=== PATIENT | female | born 1950 | race Caucasian/White ===

== ENCOUNTER 2016-07-08 06:46 | Emergency (ER) | payer OTHER ==
[~2016-07-08] VITALS: Ht 165.1 cm; Wt 54.0 kg
[~2016-07-08 06:46] MED LIST: CIPR500T4 PO; FLAG500T PO; PERC5TAB12 PO
[2016-07-08 06:51] VITALS: BP 139/91; PULSE 106; RESP 18; TEMP 97.1; O2SAT 96
[2016-07-08 07:11] LABS: BLOOD, URINE NEG (NEG); GLUCOSE,URINE NEG (NEG); KETONE, URINE NEG (NEG); NITRITE,URINE NEG (NEG)
[2016-07-08] MEDS ORDERED: PHEN100C PO (07:14)
[2016-07-08] MEDS ORDERED: ALPR0.25 PO (07:14)
[2016-07-08] MEDS ORDERED: ATOR20TA15 PO (07:14)
[2016-07-08] MEDS ORDERED: TRAZ100T4 PO (07:14)
--- NOTE | 2016-07-08 07:16 | PD ---
HPI Chief Complaint: Complaint Time Seen by Provider: 07:11 Travel History International Travel<30 days: No Contact w/Intl Traveler<30days: No Traveled to known affect area: No History of Present Illness HPI This patient complains of dysuria and urinary frequency. Duration 2 days. Severity is moderate. No alleviating factors PFSH Past Medical History Anxiety: Yes Depression: Yes Cancer: No Cardiovascular Problems: No High Cholesterol: Yes Diabetes: No Diminished Hearing: No Endocrine: No Gastrointestinal Disorders: No Genitourinary: No Hepatitis: No Hiatal Hernia: No Hypertension: Yes (WHEN NERVOUS) Immune Disorder: No Implanted Vascular Access Dvce: No Insomnia: Yes Musculoskeletal: Yes (SOME BACK PROBLEMS) Neurologic: Yes (SEIZURES 2 YEARS AGO FOLLOWING TEMPERATURE SPIKE) Psychiatric: Yes (ANXIETY) Reproductive: No Respiratory: Yes (SMOKES 1/2 PPD) Seizures: Yes (DIAGNOSED IN 2011, ON DILANTIN) Thyroid Disease: No Influenza Vaccination: No ?: Not Menopausal: Yes Past Surgical History AICD: No Section: Yes (X1) Gynecologic Surgery: Yes () Joint Replacement: No Pacemaker: No Other Surgery: Yes Social History Alcohol Use: Yes (1-2 GLASSES OF WINE OCCAS.) Tobacco Use: Yes (ONE PPD) Substance Use: No Allergies-Medications (Allergen,Severity, Reaction): Coded Allergies: Erythromycin (Verified Adverse Reaction, Unknown, gi upset, 12/29/15) Reported Meds & Prescriptions Reported Meds & Active Scripts Active Reported Phenytoin Extended 100 Mg Cap 200 Mg PO DAILY Trazodone (Trazodone HCl) 100 Mg Tab 100 Mg PO HS Atorvastatin (Atorvastatin Calcium) 20 Mg Tab 20 Mg PO HS Alprazolam 0.25 Mg Tab 0.25 Mg PO Q4H PRN Review of Systems General / Constitutional: No: Fever HENT: No: Headaches Cardiovascular: No: Chest Pain or Discomfort Respiratory: No: Cough Physical Exam Narrative GASTROINTESTINAL: Abdomen soft, non-tender, nondistended. Positive bowel sounds. No hepato-splenomegaly, or palpable masses. No guarding. SKIN: Focused skin assessment reveals no rash or ulcers. Skin is warm and dry. Palpation shows no induration or nodules. Psych: Normal mood and affect. Normal insight and judgment. Data Data Last Documented VS Vital Signs Date Time Temp Pulse Resp B/P Pulse Ox O2 Delivery O2 Flow Rate FiO2 07/08/16 06:51 97.1 106 18 139/91 96 Orders Urinalysis - C+S If Indicated (07/08/16 07:03) MDM Medical Decision Making Medical Screen Exam Complete: Yes Emergency Medical Condition: Yes Medical Record Reviewed: Yes Differential Diagnosis Cystitis, pyelonephritis, UTI Narrative Course I have reviewed the patient's electronic medical record. Patient was here December 2015 for diverticulitis Urinalysis Navid Velasco MD Jul 08, 2016 07:16
[2016-07-08 07:17] LABS: BACTERIA, URINE MANY /hpf; CULTURE IF INDICATED CULTURE INDICATED; METHOD OF COLLECTION CLEAN CATCH; RBC, URINE 0-3 /hpf (0-3); URINE COLOR STRAW (YELLW/STRAW)
[2016-07-08 07:18] LABS: COMMENT (UR) CULTURE INDICATED; SQUAMOUS EPITHELIAL CELL URINE 0-5 /hpf (0-5); TRANSITIONAL EPI CELLS, URINE 0-5 /hpf
[2016-07-08] MEDS ORDERED: BACT800T5 PO (07:23)
[2016-08-01] MEDS ORDERED: DILA100C PO (10:50)
[2016-08-01] MEDS ORDERED: PHEN100C PO (10:50)
[2016-08-01] MEDS ORDERED: ESTR42.5V VAGINAL (11:13)
== END 2016-07-08 07:41 | disposition home or self-care (01) ==
LOC: PHED 06:46
DX: N39.0 Urinary tract infection, site not specified (principal); F41.9 Anxiety disorder, unspecified; F32.9 Major depressive disorder, single episode, unspecified; E78.00 Pure hypercholesterolemia, unspecified; I10 Essential (primary) hypertension; F17.200 Nicotine dependence, unspecified, uncomplicated
CPT/HCPCS: 81001; 87077; 87086; 87186; 99283

== ENCOUNTER 2016-07-16 07:12 | Emergency (ER) | payer OTHER ==
[~2016-07-16] VITALS: Ht 165.1 cm; Wt 52.2 kg
[~2016-07-16 07:12] MED LIST changes: +ALPR0.25 PO; +ATOR20TA15 PO; +BACT800T5 PO; -CIPR500T4 PO; -FLAG500T PO; -PERC5TAB12 PO; +PHEN100C PO; +TRAZ100T4 PO
[2016-07-16 07:30] VITALS: BP 170/99; PULSE 90; RESP 16; TEMP 97.9; O2SAT 96
[2016-07-16 07:50] LABS: BLOOD, URINE NEG (NEG); GLUCOSE,URINE NEG (NEG); KETONE, URINE TRACE mg/dL (NEG); NITRITE,URINE NEG (NEG); PH, URINE 5.5 (5.0-8.5)
[2016-07-16 07:57] LABS: METHOD OF COLLECTION CLEAN CATCH; URINE COLOR YELLOW (YELLW/STRAW)
[2016-07-16 07:58] LABS: BACTERIA, URINE FEW /hpf; COMMENT (UR) CULT NOT INDICATED; CULTURE IF INDICATED CULT NOT INDICATED; RBC, URINE 0-3 /hpf (0-3)
[2016-07-16] MEDS ORDERED: PYRI200T4 PO (08:17)
--- NOTE | 2016-07-16 08:17 | PD ---
HPI Chief Complaint: Complaint Time Seen by Provider: 08:02 Travel History International Travel<30 days: No Contact w/Intl Traveler<30days: No Traveled to known affect area: No History of Present Illness HPI The patient is a 65-year-old female who presents emergency department for dysuria and suprapubic pressure. The patient was diagnosed with urinary tract infection approximately one week ago. The patient was placed on Bactrim twice a day for 5 days and her symptoms resolved. However, the patient developed frequency and urgency last night without any actual dysuria or hematuria. The patient does complain of suprapubic discomfort, but denies any flank pain, back pain, nausea, vomiting, or history of chronic urinary tract infections. Patient denies any history of bladder prolapse. The patient denies any associated fever, chills, or sweats. Symptoms are moderate, possibly exacerbated by recent urinary tract infection, and there are no current alleviating factors. PFSH Past Medical History Anxiety: Yes Depression: Yes Cancer: No Cardiovascular Problems: No High Cholesterol: Yes Diabetes: No Diminished Hearing: No Endocrine: No Gastrointestinal Disorders: No Genitourinary: No Hepatitis: No Hiatal Hernia: No Hypertension: Yes (WHEN NERVOUS) Immune Disorder: No Implanted Vascular Access Dvce: No Insomnia: Yes Medical other: No Musculoskeletal: Yes (SOME BACK PROBLEMS) Neurologic: Yes (SEIZURES 2 YEARS AGO FOLLOWING TEMPERATURE SPIKE) Psychiatric: Yes (ANXIETY) Reproductive: No Respiratory: Yes (SMOKES 1/2 PPD) Seizures: Yes (DIAGNOSED IN 2011, ON DILANTIN) Thyroid Disease: No ?: Not Menopausal: Yes Past Surgical History AICD: No Section: Yes (X1) Gynecologic Surgery: Yes () Joint Replacement: No Pacemaker: No Other Surgery: Yes Social History Alcohol Use: Yes (1-2 GLASSES OF WINE OCCAS.) Tobacco Use: Yes (ONE PPD) Substance Use: No Allergies-Medications (Allergen,Severity, Reaction): Coded Allergies: Erythromycin (Verified Adverse Reaction, Unknown, gi upset, 07/16/16) Reported Meds & Prescriptions Reported Meds & Active Scripts Active Reported Phenytoin Extended 100 Mg Cap 200 Mg PO DAILY Trazodone (Trazodone HCl) 100 Mg Tab 100 Mg PO HS Atorvastatin (Atorvastatin Calcium) 20 Mg Tab 20 Mg PO HS Alprazolam 0.25 Mg Tab 0.25 Mg PO Q4H PRN Review of Systems General / Constitutional: No: Fever Gastrointestinal: No: Nausea, Vomiting, Abdominal Pain Genitourinary: Positive: Urgency, Frequency, Pelvic Pain (suprapubic discomfort ), No: Dysuria, Hematuria, Decreased Urinary Output, Discharge Skin: No Rash Physical Exam Narrative GENERAL: Awake, alert, pleasant 65-year-old female who appears her stated age and is in no acute respiratory distress. SKIN: Focused skin assessment warm/dry. HEAD: Atraumatic. Normocephalic. EYES: No injection or drainage.. ENT: No nasal bleeding or discharge. Breath smells of cigarettes. NECK: Trachea midline. No JVD. GASTROINTESTINAL: Abdomen soft, mild suprapubic tenderness. Back: No CVA tenderness. MUSCULOSKELETAL: No obvious deformities. No clubbing. No cyanosis. No edema. NEUROLOGICAL: Awake and alert. No obvious cranial nerve deficits. Motor grossly within normal limits. Normal speech. PSYCHIATRIC: Appropriate mood and affect; insight and judgment normal. Data Data Last Documented VS Vital Signs Date Time Temp Pulse Resp B/P Pulse Ox O2 Delivery O2 Flow Rate FiO2 07/16/16 07:30 97.9 90 16 170/99 96 Orders Urinalysis - C+S If Indicated (07/16/16 07:32) Labs Laboratory Tests Test 07/16/16 07:35 Urine Collection Type CLEAN CATCH Urine Color YELLOW Urine Turbidity CLEAR Urine pH 5.5 Urine Specific [place] 1.015 Urine Protein NEG mg/dL Urine Glucose (UA) NEG mg/dL Urine Ketones TRACE mg/dL Urine Occult Blood NEG Urine Nitrite NEG Urine Bilirubin NEG Urine Leukocyte Esterase TRACE Urine RBC 0-3 /hpf Urine WBC 3-5 /hpf Urine Squamous Epithelial 6-8 /hpf Cells Urine Bacteria FEW /hpf Microscopic Urinalysis Comment CULT NOT INDICATED Urine Collection Time 07:35 [facility] Medical Decision Making Medical Screen Exam Complete: Yes Emergency Medical Condition: Yes Medical Record Reviewed: Yes Interpretation(s) Laboratory Tests Test 07/16/16 07:35 Urine Collection Type CLEAN CATCH Urine Color YELLOW Urine Turbidity CLEAR Urine pH 5.5 Urine Specific [place] 1.015 Urine Protein NEG mg/dL Urine Glucose (UA) NEG mg/dL Urine Ketones TRACE mg/dL Urine Occult Blood NEG Urine Nitrite NEG Urine Bilirubin NEG Urine Leukocyte Esterase TRACE Urine RBC 0-3 /hpf Urine WBC 3-5 /hpf Urine Squamous Epithelial 6-8 /hpf Cells Urine Bacteria FEW /hpf Microscopic Urinalysis Comment CULT NOT INDICATED Urine Collection Time 07:35 Differential Diagnosis Differential diagnosis includes cystitis, UTI, bladder prolapse, vaginitis, STI , nephrolithiasis. Narrative Course The patient has urgency, frequency, and suprapubic discomfort consistent with cystitis. UA reveals no wbc's. I reviewed the EMR, the patient's UA from her previous visit grew Klebsiella which was sensitive to Bactrim. The patient may have continuing cystitis without any overt infection. The patient will be placed on pyridium for 2 days. The patient is advised to follow-up with her primary physician, Dr. Sanchez. Diagnosis Primary Impression: Cystitis Patient Instructions: General Instructions Additional Instructions: Pyridium as directed. Follow-up with your primary physician. Return for fever or progressing symptoms. Med/Other Pt SpecificInfo: Prescription(s) given Scripts Phenazopyridine (Pyridium)200 Mg [id number] Mg PO Q8H PRN (DYSURIA) 2 Days Ref 0 Prov:Kenneth Adler MD 07/16/16 Disposition: 01 DISCHARGE HOME Condition: Stable Kenneth Adler MD Jul 16, 2016 08:17
[2016-08-01] MEDS ORDERED: PHEN100C PO (10:50)
[2016-08-01] MEDS ORDERED: DILA100C PO (10:50)
[2016-08-01] MEDS ORDERED: ESTR42.5V VAGINAL (11:13)
== END 2016-07-16 08:25 | disposition home or self-care (01) ==
LOC: PHEFT 07:12
DX: N30.90 Cystitis, unspecified without hematuria (principal); E78.00 Pure hypercholesterolemia, unspecified; F17.210 Nicotine dependence, cigarettes, uncomplicated; R56.9 Unspecified convulsions
CPT/HCPCS: 81001; 99283

== ENCOUNTER 2016-11-13 05:35 | Emergency (ER) | payer OTHER ==
[~2016-11-13] VITALS: Ht 165.1 cm; Wt 53.0 kg
[~2016-11-13 05:35] MED LIST changes: -BACT800T5 PO; +DILA100C PO; +ESTR42.5V VAGINAL; +PYRI200T4 PO
[2016-11-13 05:43] VITALS: BP 162/83; PULSE 76; RESP 16; TEMP 98.3; O2SAT 94
[2016-11-13 06:11] VITALS: BP 162/83; PULSE 76; RESP 16; TEMP 98.3; O2SAT 94
--- NOTE | 2016-11-13 06:43 | PD ---
HPI Chief Complaint: Complaint Time Seen by Provider: 06:34 Travel History International Travel<30 days: No Contact w/Intl Traveler<30days: No Traveled to known affect area: No History of Present Illness HPI The patient is a 65-year-old female with a history of frequent urinary tract infections that complains of dysuria, frequency and urgency for 1 day. She denies any fever, nausea, vomiting, flank pain. PFSH Past Medical History Anxiety: Yes Depression: Yes Cancer: No Cardiovascular Problems: No High Cholesterol: Yes Diabetes: No Diminished Hearing: No Endocrine: No Gastrointestinal Disorders: No Genitourinary: No Hepatitis: No Hiatal Hernia: No Hypertension: Yes (WHEN NERVOUS) Immune Disorder: No Implanted Vascular Access Dvce: No Insomnia: Yes Musculoskeletal: Yes (SOME BACK PROBLEMS) Neurologic: Yes (SEIZURES 2 YEARS AGO FOLLOWING TEMPERATURE SPIKE) Psychiatric: Yes (ANXIETY) Reproductive: No Respiratory: Yes (SMOKES 1/2 PPD) Seizures: Yes (DIAGNOSED IN 2011, ON DILANTIN) Thyroid Disease: No ?: Not Menopausal: Yes Past Surgical History AICD: No Section: Yes (X1) Gynecologic Surgery: Yes () Joint Replacement: No Pacemaker: No Other Surgery: Yes Social History Alcohol Use: Yes (1-2 GLASSES OF WINE OCCAS.) Tobacco Use: Yes (ONE PPD) Substance Use: No Allergies-Medications (Allergen,Severity, Reaction): Coded Allergies: Erythromycin (Verified Adverse Reaction, Unknown, gi upset, 11/13/16) Reported Meds & Prescriptions Reported Meds & Active Scripts Active Estrace Vaginal (Estradiol) 0.01% Cream 1 Gm VAGINAL HS Pyridium (Phenazopyridine HCl) 200 Mg Tab 200 Mg PO Q8H PRN 2 Days Reported Dilantin (Phenytoin Extended) 100 Mg Cap 100 Mg PO ONCE Phenytoin Extended 100 Mg Cap 100 Mg PO TID Phenytoin Extended 100 Mg Cap 200 Mg PO DAILY Trazodone (Trazodone HCl) 100 Mg Tab 100 Mg PO HS Atorvastatin (Atorvastatin Calcium) 20 Mg Tab 20 Mg PO HS Alprazolam 0.25 Mg Tab 0.25 Mg PO Q4H PRN Review of Systems Except as stated in HPI: all other systems reviewed are Neg Physical Exam Narrative GENERAL: Well-nourished, well-developed patient in slight apparent distress with her suprapubic discomfort. Her vital signs show blood pressure 162/83 with oximetry 94% but otherwise normal. SKIN: Focused skin assessment warm/dry. HEAD: Normocephalic. EYES: No scleral icterus. No injection or drainage. NECK: Supple, trachea midline. No JVD or lymphadenopathy. CARDIOVASCULAR: Regular rate and rhythm without murmurs, gallops, or rubs. RESPIRATORY: Breath sounds equal bilaterally. No accessory muscle use. GASTROINTESTINAL: Abdomen soft, with slight discomfort to direct palpation over the midline suprapubic area, the abdomen is nondistended. MUSCULOSKELETAL: No cyanosis, or edema. BACK: Nontender without obvious deformity. No CVA tenderness. Data Data Last Documented VS Vital Signs Date Time Temp Pulse Resp B/P Pulse Ox O2 Delivery O2 Flow Rate FiO2 11/13/16 06:16 16 11/13/16 06:11 98.3 76 162/83 94 Orders Urinalysis - C+S If Indicated (11/13/16 05:51) MDM Medical Decision Making Medical Screen Exam Complete: Yes Emergency Medical Condition: Yes Medical Record Reviewed: Yes Differential Diagnosis Cystitis, pyelonephritis, urethritis, interstitial cystitis. Narrative Course It is now 0650 and the patient is transferred to Dr. Jono Coles. Remberto Lake MD Nov 13, 2016 06:43
[2016-11-13] MEDS ORDERED: ALPR0.5T3 PO (06:51)
[2016-11-13] MEDS ORDERED: TRAZ100T6 PO (06:51)
[2016-11-13] MEDS ORDERED: BISO5TAB2 PO (06:51)
[2016-11-13 06:58] LABS: BLOOD, URINE NEG (NEG); GLUCOSE,URINE NEG (NEG); KETONE, URINE NEG (NEG); NITRITE,URINE NEG (NEG); PH, URINE 6.5 (5.0-8.5)
[2016-11-13 07:01] LABS: METHOD OF COLLECTION CLEAN CATCH; URINE COLOR YELLOW (YELLW/STRAW)
--- NOTE | 2016-11-13 07:01 | PD ---
Physical Exam Date Seen by Provider: Nov 13, 2016 Time Seen by Provider: 07:00 Narrative The patient was signed out to me by Dr. Remberto Lake at change of shift. The patient presented complaining of suprapubic fullness and difficulty urinating. Patient has a history of multiple UTIs. The urinalysis was pending at time of sign out. Data Data Last Documented VS Vital Signs Date Time Temp Pulse Resp B/P Pulse Ox O2 Delivery O2 Flow Rate FiO2 11/13/16 06:16 16 11/13/16 06:11 98.3 76 162/83 94 Orders Urinalysis - C+S If Indicated (11/13/16 05:51) Labs Laboratory Tests Test 11/13/16 06:50 Urine Collection Type CLEAN CATCH Urine Color YELLOW Urine Turbidity CLEAR Urine pH 6.5 Urine Specific [place] 1.006 Urine Protein NEG mg/dL Urine Glucose (UA) NEG mg/dL Urine Ketones NEG mg/dL Urine Occult Blood NEG Urine Nitrite NEG Urine Bilirubin NEG Urine Leukocyte Esterase MOD Urine RBC 0-3 /hpf Urine WBC 3-5 /hpf Microscopic Urinalysis Comment CULT NOT INDICATED MDM Medical Record Reviewed: Yes Supervised Visit with JOEL: Yes Narrative Course 65-year-old female presents today with complaints of pressure in her bladder and difficulty urinating. Patient has history of multiple UTIs. Urinalysis shows leukocyte esterase however no bacteria. Given patient's history and symptoms, we will treat her with Macrobid 100 mg twice a day 7 days she will also be given Pyridium for bladder spasms. Diagnosis Primary Impression: Cystitis Additional Instruction: Drink plenty of water. Follow up with her primary care physician. Med/Other Pt SpecificInfo: Prescription(s) given Scripts Phenazopyridine (Pyridium)100 Mg [id number] Mg PO Q8HR #6 TAB Ref 0 Prov:Jono Coles MD 11/13/16 Nitrofurantoin Monohydrate Macrocrystals (Macrobid)100 Mg [id number] Mg PO BID #14 CAP Ref 0 Prov:Jono Coles MD 11/13/16 Disposition: 01 DISCHARGE HOME Condition: Stable Jono Coles MD Nov 13, 2016 07:01
[2016-11-13 07:02] LABS: COMMENT (UR) CULT NOT INDICATED; CULTURE IF INDICATED CULT NOT INDICATED; RBC, URINE 0-3 /hpf (0-3)
[2016-11-13] MEDS ORDERED: PHEN0.4T PO (07:08)
[2016-11-13] MEDS ORDERED: MACR100C2 PO (07:08)
[2016-11-13 07:31] VITALS: BP 132/78
== END 2016-11-13 07:33 | disposition home or self-care (01) ==
LOC: PHED 05:35
DX: N30.90 Cystitis, unspecified without hematuria (principal)
CPT/HCPCS: 81001; 99284

== ENCOUNTER 2017-01-21 08:58 | Emergency (ER) | payer OTHER ==
[~2017-01-21] VITALS: Ht 165.1 cm; Wt 52.0 kg
[~2017-01-21 08:58] MED LIST changes: -ALPR0.25 PO; +ALPR0.5T3 PO; +BISO5TAB2 PO; +MACR100C2 PO; +PHEN0.4T PO; -PHEN100C PO; -PYRI200T4 PO; -TRAZ100T4 PO; +TRAZ100T6 PO
[2017-01-21 09:03] VITALS: BP 127/81; PULSE 80; RESP 18; TEMP 97.9; O2SAT 97
--- NOTE | 2017-01-21 09:27 | PD ---
HPI Chief Complaint: Abdominal Pain Time Seen by Provider: 09:23 Travel History International Travel<30 days: No Contact w/Intl Traveler<30days: No Traveled to known affect area: No History of Present Illness HPI Patient presents with complaints of abdominal discomfort and mild nausea since yesterday morning. Reports normal stools. Admits to increased urinary frequency. Denies any vomiting diarrhea or fever. History of no no other abdominal surgeries. Taking fluids well. PFSH Past Medical History Anxiety: Yes Depression: Yes Cancer: No Cardiovascular Problems: No High Cholesterol: Yes Diabetes: No Diminished Hearing: No Endocrine: No Gastrointestinal Disorders: No Genitourinary: No Hepatitis: No Hiatal Hernia: No Hypertension: Yes (WHEN NERVOUS) Immune Disorder: No Implanted Vascular Access Dvce: No Insomnia: Yes Musculoskeletal: Yes (SOME BACK PROBLEMS) Neurologic: Yes (SEIZURES 2 YEARS AGO FOLLOWING TEMPERATURE SPIKE) Psychiatric: Yes (ANXIETY) Reproductive: No Respiratory: Yes (SMOKES 1/2 PPD) Seizures: Yes (DIAGNOSED IN 2011, ON DILANTIN) Thyroid Disease: No Influenza Vaccination: No ?: Not Menopausal: Yes Past Surgical History AICD: No Section: Yes (X1) Gynecologic Surgery: Yes () Joint Replacement: No Pacemaker: No Other Surgery: Yes Social History Alcohol Use: Yes (1-2 GLASSES OF WINE OCCAS.) Tobacco Use: Yes (<one ppd) Substance Use: No Allergies-Medications (Allergen,Severity, Reaction): Coded Allergies: erythromycin base (Unverified Adverse Reaction, Unknown, gi upset, ) Reported Meds & Prescriptions Reported Meds & Active Scripts Active Reported Trazodone (Trazodone HCl) 100 Mg Tablet 100 Mg PO HS Bisoprolol-Hydrochlorothiazide 5-6.25 Mg Tab 1 Tab PO DAILY Alprazolam 0.5 Mg Tab 0.5 Mg PO Q8H PRN Dilantin (Phenytoin Extended) 100 Mg Cap 100 Mg PO ONCE Atorvastatin (Atorvastatin Calcium) 20 Mg Tab 20 Mg PO HS Review of Systems General / Constitutional: No: Fever Eyes: No: Visual changes HENT: No: Headaches Cardiovascular: No: Chest Pain or Discomfort Respiratory: No: Shortness of Breath Gastrointestinal: Positive: Nausea, Abdominal Pain Genitourinary: No: Dysuria Musculoskeletal: No: Pain Skin: No Rash Neurologic: No: Weakness Psychiatric: No: Depression Endocrine: No: Polydipsia Hematologic/Lymphatic: No: Easy Bruising Physical Exam Narrative GENERAL: Well-nourished, well-developed patient. SKIN: Focused skin assessment warm/dry. HEAD: Normocephalic. EYES: No scleral icterus. No injection or drainage. NECK: Supple, trachea midline. No JVD or lymphadenopathy. CARDIOVASCULAR: Regular rate and rhythm without murmurs, gallops, or rubs. RESPIRATORY: Breath sounds equal bilaterally. No accessory muscle use. GASTROINTESTINAL: Abdomen soft, diffusely tender mid lower abdomen, nondistended. MUSCULOSKELETAL: No cyanosis, or edema. BACK: Nontender without obvious deformity. No CVA tenderness. Data Data Last Documented VS Vital Signs Date Time Temp Pulse Resp B/P (MAP) Pulse Ox O2 Delivery O2 Flow Rate FiO2 01/21/17 12:30 72 16 116/67 (83) 97 01/21/17 09:03 97.9 Orders Orders Urinalysis - C+S If Indicated (01/21/17 09:23) Urine Culture (01/21/17 10:40) Complete Blood Count With Diff (01/21/17 11:06) Comprehensive Metabolic Panel (01/21/17 11:06) Lipase (01/21/17 11:06) Ct Abd/Pel W Iv Contrast(Rout) (01/21/17 11:06) Iv Access Insert/Monitor (01/21/17 11:06) Ecg Monitoring (01/21/17 11:06) Oximetry (01/21/17 11:06) Sodium Chloride 0.9% Flush (Ns Flush) (01/21/17 11:15) Iohexol 350 Inj (Omnipaque 350 Inj) (01/21/17 12:17) Labs Laboratory Tests Test 01/21/17 10:40 01/21/17 11:15 Urine Collection Type CLEAN CATCH Urine Color YELLOW Urine Turbidity CLEAR Urine pH 6.0 Urine Specific [place] 1.006 Urine Protein NEG mg/dL Urine Glucose (UA) NEG mg/dL Urine Ketones NEG mg/dL Urine Occult Blood NEG Urine Nitrite NEG Urine Bilirubin NEG Urine Leukocyte Esterase MOD Urine RBC 0-3 /hpf Urine WBC 20-24 /hpf Urine Squamous Epithelial Cells 6-8 /hpf Microscopic Urinalysis Comment CULTURE INDICATED Urine Collection Time 10:40 White Blood Count 12.2 TH/MM3 Red Blood Count 4.63 MIL/MM3 Hemoglobin 14.5 GM/DL Hematocrit 43.2 % Mean Corpuscular Volume 93.3 FL Mean Corpuscular Hemoglobin 31.3 PG Mean Corpuscular Hemoglobin Concent 33.5 % Red Cell Distribution Width 12.7 % Platelet Count 352 TH/MM3 Mean Platelet Volume 7.1 FL Neutrophils (%) (Auto) 82.1 % Lymphocytes (%) (Auto) 9.4 % Monocytes (%) (Auto) 7.4 % Eosinophils (%) (Auto) 0.7 % Basophils (%) (Auto) 0.4 % Neutrophils # (Auto) 10.1 TH/MM3 Lymphocytes # (Auto) 1.1 TH/MM3 Monocytes # (Auto) 0.9 TH/MM3 Eosinophils # (Auto) 0.1 TH/MM3 Basophils # (Auto) 0.0 TH/MM3 CBC Comment DIFF FINAL Differential Comment Blood Urea Nitrogen 10 MG/DL Creatinine 0.77 MG/DL Random Glucose 102 MG/DL Total Protein 6.9 GM/DL Albumin 3.4 GM/DL Calcium Level 8.7 MG/DL Alkaline Phosphatase 81 U/L Aspartate Amino Transf (AST/SGOT) 20 U/L Alanine Aminotransferase (ALT/SGPT) 25 U/L Total Bilirubin 0.6 MG/DL Sodium Level 128 MEQ/L Potassium Level 4.3 MEQ/L Chloride Level 91 MEQ/L Carbon Dioxide Level 29.3 MEQ/L Anion Gap 8 MEQ/L Estimat Glomerular Filtration Rate 75 ML/MIN Lipase 119 U/L MDM Medical Decision Making Medical Screen Exam Complete: Yes Emergency Medical Condition: Yes Differential Diagnosis UTI, colitis, SBO Narrative Course Assessment and plan discussed with patient at bedside. Last 72 hours Impressions Abdomen/Pelvis CT 01/21/17 1106 Signed Impressions: Service Date/Time: Saturday, January 21, 2017 12:12 - CONCLUSION: 1. Thickening of the sigmoid colon likely from some degree of colitis or diverticulitis. 2. Hepatic steatosis. 3. Several small stable hypodensities throughout the liver likely represent cysts or hemangiomas. 4. Nonspecific prominence of the pyloric region of the stomach. This can be seen normally. It can be correlated if the patient has any symptoms related to this region. Elieser Bird MD Diagnosis Primary Impression: Diverticulitis Qualified Codes: K57.92 - Diverticulitis of intestine, part unspecified, without perforation or abscess without bleeding Patient Instructions: General Instructions Additional Instructions: Encouraged a bland high-fiber brat diet. Encouraged fluids. Medications as prescribed. Encouraged to follow-up with PCP. Encouraged to return to emergency room with any onset of new symptoms. Med/Other Pt SpecificInfo: Prescription(s) given Scripts Hydrocodone-Acetaminophen (Hydrocodone-Acetaminophen) 5-325 mg Tab 1 TAB PO Q4H Y for PAIN, #15 TAB 0 Refills Prov: Conner Talley MD 01/21/17 Metronidazole (Flagyl) 500 Mg Tab 500 MG PO BID for Infection for 7 Days, #14 TAB 0 Refills Prov: Conner Talley MD 01/21/17 Ciprofloxacin (Cipro) 500 Mg Tab 500 MG PO BID for Infection for 7 Days, #14 TAB 0 Refills Prov: Conner Talley MD 01/21/17 Disposition: 01 DISCHARGE HOME Condition: Good Conner Talley MD Jan 21, 2017 09:27
[2017-01-21 10:51] LABS: BLOOD, URINE NEG (NEG); GLUCOSE,URINE NEG (NEG); KETONE, URINE NEG (NEG); NITRITE,URINE NEG (NEG)
[2017-01-21 10:55] LABS: METHOD OF COLLECTION CLEAN CATCH; URINE COLOR YELLOW (YELLW/STRAW)
[2017-01-21 10:56] LABS: COMMENT (UR) CULTURE INDICATED; CULTURE IF INDICATED CULTURE INDICATED; RBC, URINE 0-3 /hpf (0-3)
[2017-01-21] MEDS ORDERED: SODIUM CHLORIDE 0.9% FLUSH 10 ML FLUSH IV FLUSH PRN (11:15)
[2017-01-21 11:35] LABS: AUTOMATED NEUTROPHIL # 10.1 TH/MM3 (1.8-7.7); BASOPHIL % 0.4 % (0.0-2.0); EOSINOPHIL # 0.1 TH/MM3 (0-0.4); EOSINOPHIL % 0.7 % (0.0-4.0); HEMATOCRIT 43.2 % (35.0-46.0); LYMPH % 9.4 % (9.0-44.0); LYMPHOCYTE # 1.1 TH/MM3 (1.0-4.8); MEAN CELL VOLUME 93.3 FL (80.0-100.0); MEAN CORPUSCULAR HEMOGLOBIN 31.3 PG (27.0-34.0); MEAN CORPUSCULAR HGB CONC 33.5 % (32.0-36.0); MONO % 7.4 % (0.0-8.0); NEUT % 82.1 % (16.0-70.0); PLATELET COUNT 352 TH/MM3 (150-450); RED BLOOD COUNT 4.63 MIL/MM3 (4.00-5.30); RED CELL DISTRIBUTION WIDTH 12.7 % (11.6-17.2); WHITE BLOOD COUNT 12.2 TH/MM3 (4.0-11.0)
[2017-01-21 11:36] LABS: CHLORIDE 91 MEQ/L (98-107); HEMO FLAGS DIFF FINAL; POTASSIUM 4.3 MEQ/L (3.5-5.1); SODIUM (NA) 128 MEQ/L (136-145)
[2017-01-21 11:39] LABS: ANION GAP 8 MEQ/L (5-15); BICARBONATE 29.3 MEQ/L (21.0-32.0); BLOOD UREA NITROGEN 10 MG/DL (7-18)
[2017-01-21 11:41] LABS: ALT (GPT) 25 U/L (10-53); GLOMERULAR FILTRATION RATE 75 ML/MIN (>89)
[2017-01-21 11:42] LABS: AST (GOT) 20 U/L (15-37)
[2017-01-21 11:43] LABS: TOTAL BILIRUBIN ADULT 0.6 MG/DL (0.2-1.0)
[2017-01-21 11:45] LABS: ALKALINE PHOSPHATASE 81 U/L (45-117)
[2017-01-21] MEDS ORDERED: IOHEXOL 350 MG/ML 10 ML VIAL (for RAD DIAG) IVCONTRAST ONE (12:17)
[2017-01-21 12:30] VITALS: BP 116/67; PULSE 72; RESP 16; O2SAT 97
--- NOTE | 2017-01-21 13:00 | RADRPT ---
EXAM DATE/TIME: 01/21/2017 12:12 [facility] COMPARISON: CT ABDOMEN & PELVIS W CONTRAST, December 29, 2015, 9:00. INDICATIONS : Bilateral lower abdominal pain. IV CONTRAST: 90 cc Omnipaque 350 (iohexol) IV ORAL CONTRAST: No oral contrast ingested. RADIATION DOSE: 5.26 CTDIvol (mGy) MEDICAL HISTORY : Hypertension. Diverticulitis. Seizures. SURGICAL HISTORY : section. ENCOUNTER: Initial ACUITY: 2 days PAIN SCALE: 8/10 LOCATION: Bilateral lower quadrant TECHNIQUE: Volumetric scanning of the abdomen and pelvis was performed. Using automated exposure control and ad justment of the mA and/or kV according to patient size, radiation dose was kept as low as reasonably achievable to obtain optimal diagnostic quality images. DICOM format image data is available electro nically for review and comparison. FINDINGS: LOWER LUNGS: The visualized lower lungs are clear. LIVER: There is decreased attenuation of the liver. There are several small subcentimeter hypodensities in t he liver which all appear stable. SPLEEN: Normal size without lesion. PANCREAS: Within normal limits. KIDNEYS: Normal in size and shape. There is no mass, stone or hydronephrosis. ADRENAL GLANDS: Within normal limits. VASCULAR: There is no aortic aneurysm. There are scattered atherosclerotic calcifications seen. BOWEL/MESENTERY: There is thickening of the distal sigmoid colon. There is minimal inflammatory change surrounding thi s region. There are diverticula in this region and throughout other areas of the colon. There is some paucity gastric pylorus with surrounding inflammatory change is not seen. ABDOMINAL WALL: Within normal limits. RETROPERITONEUM: There is no lymphadenopathy. BLADDER: No wall thickening or mass. REPRODUCTIVE: Within normal limits. INGUINAL: There is no lymphadenopathy or hernia. MUSCULOSKELETAL: There is degenerative change of the lumbar spine. CONCLUSION: 1. Thickening of the sigmoid colon likely from some degree of colitis or diverticulitis. 2. Hepatic steatosis. 3. Several small stable hypodensities throughout the liver likely represent cysts or hemangiomas. 4. Nonspecific prominence of the pyloric region of the stomach. This can be seen normally. It can be correlated if the patient has any symptoms related to this region. Elieser Bird MD on January 21, 2017 at 12:51 Board Certified Radiologist. This report was verified electronically.
[2017-01-21] MEDS ORDERED: METR-1 PO (13:19)
[2017-01-21] MEDS ORDERED: CIPR-9 PO (13:19)
[2017-01-21] MEDS ORDERED: HYDR-3516 PO (13:19)
== END 2017-01-21 13:35 | disposition home or self-care (01) ==
LOC: PHED 08:58
DX: K57.92 Diverticulitis of intestine, part unspecified, without perforation or abscess without bleeding (principal); K76.0 Fatty (change of) liver, not elsewhere classified; I10 Essential (primary) hypertension; E78.00 Pure hypercholesterolemia, unspecified; F17.200 Nicotine dependence, unspecified, uncomplicated
CPT/HCPCS: 74177; 80053; 81001; 83690; 85025; 87086; 99285; Q9967; 87077; 87186

== ENCOUNTER 2017-06-21 05:44 | Emergency (ER) | payer OTHER ==
[~2017-06-21] VITALS: Ht 165.1 cm; Wt 53.8 kg
[~2017-06-21 05:44] MED LIST changes: +CIPR-9 PO; -ESTR42.5V VAGINAL; +HYDR-3516 PO; -MACR100C2 PO; +METR-1 PO; -PHEN0.4T PO; +TRAZ100T10 PO; -TRAZ100T6 PO
[2017-06-21 05:49] VITALS: BP 183/87; PULSE 66; RESP 20; TEMP 97.7; O2SAT 96
[2017-06-21] MEDS ORDERED: PHENAZOPYRIDINE HCL 100 MG TAB PO ONE (06:00)
[2017-06-21 06:16] LABS: BILIRUBIN, URINE NEG (NEG); BLOOD, URINE NEG (NEG); GLUCOSE,URINE NEG (NEG); KETONE, URINE NEG (NEG); NITRITE,URINE NEG (NEG); PH, URINE 6.5 (5.0-8.5); URINE COLOR YELLOW (YELLW/STRAW); URINE LEUKOCYTE ESTERASE SMALL (NEG)
[2017-06-21 06:21] LABS: BACTERIA, URINE MOD /hpf; SQUAMOUS EPITHELIAL CELL URINE 0-5 /hpf (0-5); WHITE BLOOD CELL CLUMPS OCC
[2017-06-21] MEDS ORDERED: CEPH-460 PO (06:37)
[2017-06-21] MEDS ORDERED: PHEN0.4T PO (06:37)
--- NOTE | 2017-06-21 06:37 | PD ---
HPI Chief Complaint: Complaint Time Seen by Provider: 05:58 Travel History International Travel<30 days: No Contact w/Intl Traveler<30days: No Traveled to known affect area: No History of Present Illness HPI 66-year-old female presents to the emergency department for 1 day of urinary frequency and dysuria without fever chills nausea vomiting hematuria or flank pain. Patient has history of urinary tract infections. Patient states she has been very stressed because of domestic issues. Patient denies any abdominal pain vaginal discharge or vaginal bleeding rectal pain diarrhea constipation mucoid bloody stools. The patient rates her discomfort for over 10 intensity. PFSH Past Medical History Narrative Medical Anxiety depression, dyslipidemia, UTI, diverticulitis, seizure, hypertension, and insomnia; cervical alcohol tobacco use; nursing notes reviewed Anxiety: Yes Depression: Yes Cancer: No Cardiovascular Problems: No High Cholesterol: Yes Diabetes: No Diminished Hearing: No Endocrine: No Gastrointestinal Disorders: No Genitourinary: No Hepatitis: No Hiatal Hernia: No Hypertension: Yes (WHEN NERVOUS) Immune Disorder: No Implanted Vascular Access Dvce: No Insomnia: Yes Musculoskeletal: Yes (SOME BACK PROBLEMS) Neurologic: Yes (SEIZURES 2 YEARS AGO FOLLOWING TEMPERATURE SPIKE) Psychiatric: Yes (ANXIETY) Reproductive: No Respiratory: Yes (Hypertension and insomnia) Seizures: Yes (DIAGNOSED IN 2011, ON DILANTIN) Thyroid Disease: No Menopausal: Yes Past Surgical History AICD: No Section: Yes (X1) Gynecologic Surgery: Yes () Joint Replacement: No Pacemaker: No Other Surgery: Yes Social History Alcohol Use: Yes (1-2 GLASSES OF WINE OCCAS.) Tobacco Use: Yes (<one ppd) Substance Use: No Allergies-Medications (Allergen,Severity, Reaction): Coded Allergies: erythromycin base (Unverified Adverse Reaction, Unknown, gi upset, ) Reported Meds & Prescriptions Reported Meds & Active Scripts Active Keflex (Cephalexin) 500 Mg Capsule 500 Mg PO Q6H 10 Days Pyridium (Phenazopyridine HCl) 100 Mg Tab 100 Mg PO Q8H PRN Hydrocodone-Acetaminophen 5-325 mg Tab 1 Tab PO Q4H PRN Flagyl (Metronidazole) 500 Mg Tab 500 Mg PO BID 7 Days Cipro (Ciprofloxacin HCl) 500 Mg Tab 500 Mg PO BID 7 Days Reported Trazodone (Trazodone HCl) 100 Mg Tablet 100 Mg PO HS Bisoprolol-Hydrochlorothiazide 5-6.25 Mg Tab 1 Tab PO DAILY Alprazolam 0.5 Mg Tab 0.5 Mg PO Q8H PRN Dilantin (Phenytoin Extended) 100 Mg Cap 100 Mg PO ONCE Atorvastatin (Atorvastatin Calcium) 20 Mg Tab 20 Mg PO HS Review of Systems Except as stated in HPI: all other systems reviewed are Neg General / Constitutional: No: Fever HENT: No: Congestion Cardiovascular: No: Chest Pain or Discomfort Respiratory: No: Shortness of Breath Gastrointestinal: No: Nausea, Vomiting, Diarrhea, Abdominal Pain Genitourinary: Positive: Frequency, Dysuria, No: Pelvic Pain, Flank Pain Musculoskeletal: No: Myalgias, Arthralgias Skin: No Rash Neurologic: No: Weakness Psychiatric: Positive: Anxiety, No: Suicidal Ideations, Homicidal Ideation Hematologic/Lymphatic: No: Lymph Node Enlargement Physical Exam Narrative GENERAL: Well-developed elderly female in no acute respiratory distress SKIN: Warm and dry. HEAD: Normocephalic. EYES: No scleral icterus. No injection or drainage. NECK: Supple, trachea midline. No JVD or lymphadenopathy. CARDIOVASCULAR: Regular rate and rhythm without murmurs, gallops, or rubs. RESPIRATORY: Breath sounds equal bilaterally. No accessory muscle use. GASTROINTESTINAL: Abdomen soft, non-tender, nondistended. MUSCULOSKELETAL: No cyanosis, or edema. BACK: Nontender without obvious deformity. No CVA tenderness. Data Data Last Documented VS Vital Signs Date Time Temp Pulse Resp B/P (MAP) Pulse Ox O2 Delivery O2 Flow Rate FiO2 06/21/17 06:37 20 06/21/17 05:49 97.7 66 183/87 (119) 96 Orders Orders Urinalysis - C+S If Indicated (06/21/17 05:58) Phenazopyridine (Pyridium) (06/21/17 06:00) Urine Culture (06/21/17 06:00) Cephalexin (Keflex) (06/21/17 06:45) Ed Discharge Order (06/21/17 06:39) Labs Laboratory Tests Test 06/21/17 06:00 Urine Collection Type CLEAN CATCH Urine Color YELLOW Urine Turbidity CLEAR Urine pH 6.5 Urine Specific [place] LESS/EQUAL 1.005 Urine Protein NEG mg/dL Urine Glucose (UA) NEG mg/dL Urine Ketones NEG mg/dL Urine Occult Blood NEG Urine Nitrite NEG Urine Bilirubin NEG Urine Urobilinogen 0.2 MG/DL Urine Leukocyte Esterase SMALL Urine WBC 9-14 /hpf Urine WBC Clumps OCC Urine Squamous Epithelial Cells 0-5 /hpf Urine Bacteria MOD /hpf Microscopic Urinalysis Comment CULTURE INDICATED MDM Medical Decision Making Medical Screen Exam Complete: Yes Emergency Medical Condition: Yes Medical Record Reviewed: Yes Interpretation(s) Urinalysis: White blood cells clumped white blood cells moderate bacteria; culture indicate Differential Diagnosis Dysuria, urinary tract infection, pyelonephritis; also to consider diverticulitis colitis; patient is nontoxic in appearance unlikely abdominal aortic aneurysm Narrative Course Patient able to provide urine specimen sent for urinalysis due to urinary frequency and dysuria patient given dose of Pyridium 100 mg Urinalysis is abnormal and consistent with recurrent UTI patient given first dose of oral antibiotic Keflex Patient is stable for outpatient management and follow-up with her primary care provider; patient provided prescription for Pyridium and Keflex Diagnosis Primary Impression: Urinary tract infection Qualified Codes: N39.0 - Urinary tract infection, site not specified Referrals: Primary Care Physician call for appointment Patient Instructions: General Instructions Additional Instructions: Increase fluid hydration Take Pyridium as needed for bladder spasm Complete course of antibiotic as prescribed Follow-up with your primary care provider May take as tolerated acetaminophen/Tylenol every 4 hours for fever 100.4F or greater or for minor pain May take as tolerated ibuprofen/Advil/Motrin every 6-8 hours for fever 100.4F or greater or for pain associated with inflammation per package directions Return to the emergency department for any concerns or change in condition Scripts Cephalexin (Keflex) 500 Mg Capsule 500 MG PO Q6H for Infection for 10 Days, #40 CAP 0 Refills Prov: Maya Davenport MD 06/21/17 Phenazopyridine (Pyridium) 100 Mg Tab 100 MG PO Q8H Y for DYSURIA, #6 TAB 0 Refills Prov: Maya Davenport MD 06/21/17 Disposition: 01 DISCHARGE HOME Condition: Stable Maya Davenport MD Jun 21, 2017 06:37
[2017-06-21] MEDS ORDERED: CEPHALEXIN MONOHYDRATE 500 MG CAP PO ONE (06:45)
== END 2017-06-21 07:06 | disposition home or self-care (01) ==
LOC: PHED 05:44
DX: N39.0 Urinary tract infection, site not specified (principal); B96.20 Unspecified Escherichia coli [E. coli] as the cause of diseases classified elsewhere; I10 Essential (primary) hypertension; E78.5 Hyperlipidemia, unspecified; G40.909 Epilepsy, unspecified, not intractable, without status epilepticus; F41.8 Other specified anxiety disorders; G47.00 Insomnia, unspecified; Z87.39 Personal history of other diseases of the musculoskeletal system and connective tissue; Z87.440 Personal history of urinary (tract) infections
CPT/HCPCS: 81001; 87077; 87086; 87186; 99283

== ENCOUNTER 2017-09-20 08:05 | Emergency (ER) | payer OTHER ==
[~2017-09-20] VITALS: Ht 165.1 cm; Wt 51.0 kg
[~2017-09-20 08:05] MED LIST changes: +CEPH-460 PO; -CIPR-9 PO; -HYDR-3516 PO; -METR-1 PO; +PHEN0.4T PO
[2017-09-20 08:09] VITALS: BP 182/84; PULSE 61; RESP 16; TEMP 98.6; O2SAT 97
[2017-09-20 08:41] LABS: BILIRUBIN, URINE NEG (NEG); BLOOD, URINE NEG (NEG); GLUCOSE,URINE NEG (NEG); KETONE, URINE NEG (NEG); NITRITE,URINE NEG (NEG); URINE COLOR YELLOW (YELLW/STRAW); URINE LEUKOCYTE ESTERASE NEG (NEG)
[2017-09-20 08:49] LABS: RBC, URINE 0-3 /hpf (0-3); WBC, URINE 0-2 /hpf (0-5)
--- NOTE | 2017-09-20 09:29 | PD ---
HPI Chief Complaint: Complaint Time Seen by Provider: 08:13 Travel History International Travel<30 days: No Contact w/Intl Traveler<30days: No Traveled to known affect area: No History of Present Illness HPI This is a 66-year-old female who presents with urinary frequency and some lower abdominal discomfort that has been going on for 3 days, constant, mild, with no associated fevers, chills, back pain or vomiting. She has a history of recurrent urinary tract infections and she thinks that is what is going on. She is also diverticulitis in the past. She denies any loose stools but she has had some gas. History Past Medical History Influenza Vaccination: No Menopausal: Yes Social History Alcohol Use: Yes (1-2 GLASSES OF WINE OCCAS.) Tobacco Use: Yes (1 PPD) Allergies-Medications (Allergen,Severity, Reaction): Coded Allergies: erythromycin base (Unverified Adverse Reaction, Unknown, gi upset, 09/20/17 ) Reported Meds & Prescriptions Reported Meds & Active Scripts Active Reported Trazodone (Trazodone HCl) 100 Mg Tablet 100 Mg PO HS Bisoprolol-Hydrochlorothiazide 5-6.25 Mg Tab 1 Tab PO DAILY Alprazolam 0.5 Mg Tab 0.5 Mg PO Q8H PRN Dilantin (Phenytoin Extended) 100 Mg Cap 200 Mg PO BID Atorvastatin (Atorvastatin Calcium) 20 Mg Tab 20 Mg PO HS Review of Systems Except as stated in HPI: all other systems reviewed are Neg Physical Exam Narrative GENERAL:Well appearing, no acute distress SKIN: Focused skin assessment warm and dry. HEAD: Atraumatic. Normocephalic. EYES: Pupils equal and round. No injection or drainage. ENT: Moist mucous membranes NECK: Trachea midline. CARDIOVASCULAR: Regular rate and rhythm. No murmur appreciated. RESPIRATORY: Clear to auscultation. Breath sounds equal bilaterally. GASTROINTESTINAL: Abdomen soft, non-tender, nondistended. MUSCULOSKELETAL: No obvious deformities. NEUROLOGICAL: Awake and alert. No obvious cranial nerve deficits. Moving all extremities. PSYCHIATRIC: Appropriate mood and affect; insight and judgment normal. Data Data Last Documented VS Vital Signs Date Time Temp Pulse Resp B/P (MAP) Pulse Ox O2 Delivery O2 Flow Rate FiO2 09/20/17 08:09 98.6 61 16 182/84 (116) 97 Orders Orders Urinalysis - C+S If Indicated (09/20/17 08:13) Complete Blood Count With Diff (09/20/17 09:10) Comprehensive Metabolic Panel (09/20/17 09:10) ^ Insert Iv (09/20/17 09:10) Sodium Chlor 0.9% 1000 Ml Inj (Ns 1000 M (09/20/17 10:45) Labs Laboratory Tests Test 09/20/17 08:20 09/20/17 09:15 Urine Color YELLOW Urine Turbidity CLEAR Urine pH 6.0 Urine Specific [place] LESS/EQUAL 1.005 Urine Protein NEG mg/dL Urine Glucose (UA) NEG mg/dL Urine Ketones NEG mg/dL Urine Occult Blood NEG Urine Nitrite NEG Urine Bilirubin NEG Urine Urobilinogen 0.2 MG/DL Urine Leukocyte Esterase NEG Urine RBC 0-3 /hpf Urine WBC 0-2 /hpf Urine Bacteria NONE /hpf Microscopic Urinalysis Comment CULT NOT INDICATED White Blood Count 10.5 TH/MM3 Red Blood Count 4.55 MIL/MM3 Hemoglobin 14.5 GM/DL Hematocrit 42.5 % Mean Corpuscular Volume 93.5 FL Mean Corpuscular Hemoglobin 32.0 PG Mean Corpuscular Hemoglobin Concent 34.2 % Red Cell Distribution Width 12.5 % Platelet Count 360 TH/MM3 Mean Platelet Volume 8.1 FL Neutrophils (%) (Auto) 80.1 % Lymphocytes (%) (Auto) 11.2 % Monocytes (%) (Auto) 7.0 % Eosinophils (%) (Auto) 1.0 % Basophils (%) (Auto) 0.7 % Neutrophils # (Auto) 8.4 TH/MM3 Lymphocytes # (Auto) 1.2 TH/MM3 Monocytes # (Auto) 0.7 TH/MM3 Eosinophils # (Auto) 0.1 TH/MM3 Basophils # (Auto) 0.1 TH/MM3 CBC Comment DIFF FINAL Differential Comment Blood Urea Nitrogen 8 MG/DL Creatinine 0.57 MG/DL Random Glucose 94 MG/DL Total Protein 7.1 GM/DL Albumin 3.5 GM/DL Calcium Level 8.8 MG/DL Alkaline Phosphatase 85 U/L Aspartate Amino Transf (AST/SGOT) 23 U/L Alanine Aminotransferase (ALT/SGPT) 33 U/L Total Bilirubin 0.5 MG/DL Sodium Level 129 MEQ/L Potassium Level 3.9 MEQ/L Chloride Level 94 MEQ/L Carbon Dioxide Level 27.7 MEQ/L Anion Gap 7 MEQ/L Estimat Glomerular Filtration Rate 106 ML/MIN MDM Medical Decision Making Medical Screen Exam Complete: Yes Emergency Medical Condition: Yes Interpretation(s) No leukocytosis 80% neutrophils Mild hyponatremia Urinalysis is negative for infection Differential Diagnosis Urinary tract infection, diverticulitis, colitis, sepsis Narrative Course This is a 66-year-old female who presents to the emergency department with lower abdominal discomfort. She thought she had a urinary tract infection. Urinalysis is negative for infection and labs are reassuring with no leukocytosis. She has a benign abdominal exam and I cannot elicit any tenderness. She may have mild diverticulitis. She was prescribed antibiotics but told to take them if her symptoms do not improve in 1-2 days. If she develops fever or severe pain she will return to the emergency room. I do not think any imaging is warranted given her well appearance. Diagnosis Primary Impression: Abdominal pain Qualified Codes: R10.30 - Lower abdominal pain, unspecified Patient Instructions: General Instructions Additional Instructions: If you develop severe or worsening abdominal pain, fever>100.4, persistent vomiting or inability to eat or drink return to the emergency department immediately. Follow up with your primary care physician in 1-2 days for a check-up. Med/Other Pt SpecificInfo: Prescription(s) given Scripts Metronidazole (Flagyl) 500 Mg Tab 500 MG PO TID for Infection for 10 Days, TAB 0 Refills Prov: Beatrice Philippe MD 09/20/17 Ciprofloxacin (Ciprofloxacin) 500 Mg Tab 500 MG PO BID for Infection for 10 Days, #20 TAB 0 Refills Prov: Beatrice Philippe MD 09/20/17 Disposition: 01 DISCHARGE HOME Condition: Stable Beatrice Philippe MD Sep 20, 2017 09:29
[2017-09-20 09:55] LABS: AUTOMATED NEUTROPHIL # 8.4 TH/MM3 (1.8-7.7); BASOPHIL # 0.1 TH/MM3 (0-0.2); BASOPHIL % 0.7 % (0.0-2.0); EOSINOPHIL # 0.1 TH/MM3 (0-0.4); HEMATOCRIT 42.5 % (35.0-46.0); HEMOGLOBIN 14.5 GM/DL (11.6-15.3); LYMPH % 11.2 % (9.0-44.0); LYMPHOCYTE # 1.2 TH/MM3 (1.0-4.8); MEAN CELL VOLUME 93.5 FL (80.0-100.0); MEAN CORPUSCULAR HGB CONC 34.2 % (32.0-36.0); MEAN PLATELET VOLUME 8.1 FL (7.0-11.0); MONOCYTE # 0.7 TH/MM3 (0-0.9); NEUT % 80.1 % (16.0-70.0); PLATELET COUNT 360 TH/MM3 (150-450); RED BLOOD COUNT 4.55 MIL/MM3 (4.00-5.30); RED CELL DISTRIBUTION WIDTH 12.5 % (11.6-17.2); WHITE BLOOD COUNT 10.5 TH/MM3 (4.0-11.0)
[2017-09-20 10:00] VITALS: BP 162/84; PULSE 72; RESP 18; O2SAT 97
[2017-09-20 10:18] LABS: CHLORIDE 94 MEQ/L (98-107); SODIUM (NA) 129 MEQ/L (136-145)
[2017-09-20 10:21] LABS: CALCIUM 8.8 MG/DL (8.5-10.1)
[2017-09-20 10:22] LABS: ALBUMIN 3.5 GM/DL (3.4-5.0); BICARBONATE 27.7 MEQ/L (21.0-32.0); BLOOD UREA NITROGEN 8 MG/DL (7-18); GLUCOSE,RANDOM 94 MG/DL (74-106)
[2017-09-20 10:25] LABS: AST (GOT) 23 U/L (15-37); CREATININE 0.57 MG/DL (0.50-1.00); GLOMERULAR FILTRATION RATE 106 ML/MIN (>89)
[2017-09-20 10:27] LABS: TOTAL PROTEIN 7.1 GM/DL (6.4-8.2)
[2017-09-20 10:28] LABS: ALKALINE PHOSPHATASE 85 U/L (45-117)
[2017-09-20 10:32] LABS: ALT (GPT) 33 U/L (10-53)
[2017-09-20 10:36] LABS: TOTAL BILIRUBIN ADULT 0.5 MG/DL (0.2-1.0)
[2017-09-20] MEDS ORDERED: SODIUM CHLOR 0.9% 1000 ML INJ 1,000 ML IV ONE (10:45)
[2017-09-20] MEDS ORDERED: CIPR500T2 PO (10:47)
[2017-09-20] MEDS ORDERED: METR-1 PO (10:47)
== END 2017-09-20 12:16 | disposition home or self-care (01) ==
LOC: PHED 08:05
DX: R10.30 Lower abdominal pain, unspecified (principal); R35.0 Frequency of micturition; E87.1 Hypo-osmolality and hyponatremia; F17.200 Nicotine dependence, unspecified, uncomplicated; Z87.440 Personal history of urinary (tract) infections; Z87.19 Personal history of other diseases of the digestive system
CPT/HCPCS: 80053; 81001; 85025; 96360; 99284; J7030